=== PATIENT | female | born 1945 | race African-American/Black ===

== ENCOUNTER 2019-05-24 04:14 | Emergency (ER) | payer OTHER, BC ==
[~2019-05-24] VITALS: Ht 149.9 cm; Wt 72.6 kg
[~2019-05-24 04:14] MED LIST: GLUCOPHAGE500 MG; HYDROCHLOROTHIA25 M1; LISINOPRIL40 MG; PERCOCET 5-3251 EACH PO; SAVELLA25 MG
[2019-05-24] MEDS ORDERED: HUMIRA40 MG/0.1 SUBQ (04:19)
[2019-05-24] MEDS ORDERED: ACTOS15 MG PO (04:19)
[2019-05-24] MEDS ORDERED: NORVASC 2.5 MG2.5 M1 PO (04:20)
[2019-05-24] MEDS ORDERED: ULTRAM 50MG TAB50 MG PO (04:21)
[2019-05-24] MEDS ORDERED: ZOFRAN ODT4 MG PO (06:11)
[2019-05-24 06:20] VITALS: BP 178/79
== END 2019-05-24 06:21 | disposition home or self-care (01) ==
LOC: ER 04:14
DX: S00.03XA Contusion of scalp, initial encounter (principal); M25.511 Pain in right shoulder; I10 Essential (primary) hypertension; E11.9 Type 2 diabetes mellitus without complications; M19.90 Unspecified osteoarthritis, unspecified site; Z88.0 Allergy status to penicillin; W01.0XXA Fall on same level from slipping, tripping and stumbling without subsequent striking against object, initial encounter; Y93.89 Activity, other specified; Y92.89 Other specified places as the place of occurrence of the external cause; Y99.8 Other external cause status